=== PATIENT | female | born 1990 | race Caucasian/White ===

== ENCOUNTER 2016-04-20 07:57 | Emergency (ER) | payer OTHER ==
[~2016-04-20] VITALS: Ht 165.1 cm; Wt 124.0 kg
[~2016-04-20 07:57] MED LIST: AMOX500T PO
[2016-04-20 08:01] VITALS: BP 133/91; PULSE 98; RESP 16; TEMP 98; O2SAT 100
[2016-04-20] MEDS ORDERED: MOTR200T4 PO (08:09)
[2016-04-20] MEDS ORDERED: OSEL75 PO (08:09)
[2016-04-20] MEDS ORDERED: AMOX500T PO (08:19)
--- NOTE | 2016-04-20 08:20 | PD ---
HPI Chief Complaint: Cold / Flu Symptoms Time Seen by Provider: 08:09 Travel History International Travel<30 days: No Contact w/Intl Traveler<30days: No Traveled to known affect area: No History of Present Illness HPI This 25-year-old female says she been sick since Thursday. She started having some sore throat then. The sore throat is gone progressively worse. She is not sure if she's had fever. She has been taking TheraFlu. She says when she lays down and feels like her tonsils are closing her throat. She says there is no chance of . She has had a slight cough and a runny nose PFSH Past Medical History Diminished Hearing: No Tetanus Vaccination: Unknown Influenza Vaccination: No ?: Not LMP: 2-3 WEEKS AGO Menopausal: No Social History Alcohol Use: No Tobacco Use: No Substance Use: No Allergies-Medications (Allergen,Severity, Reaction): Coded Allergies: No Known Allergies (Verified , 04/20/16) Reported Meds & Prescriptions Reported Meds & Active Scripts Active Reported Tamiflu (Oseltamivir Phosphate) 75 Mg Cap 75 Mg PO DAILY Motrin Ib (Ibuprofen) 200 Mg Tab 400 Mg PO Q6H PRN Review of Systems General / Constitutional: No: Fever, Chills HENT: Positive: Sore Throat, Rhinitis, No: Headaches Cardiovascular: No: Chest Pain or Discomfort, Palpitations Respiratory: Positive: Cough Gastrointestinal: No: Vomiting, Diarrhea Genitourinary: No: Urgency, Frequency Musculoskeletal: Positive: Myalgias Skin: No Rash, No Itching Neurologic: No: Weakness Hematologic/Lymphatic: No: Easy Bruising Physical Exam Narrative GENERAL: Well-developed female SKIN: Warm and dry. HEAD: Atraumatic. Normocephalic. EYES: Pupils equal and round. No scleral icterus. No injection or drainage. ENT: No nasal bleeding or discharge. Mucous membranes pink and moist. Airways patent. Tonsils are enlarged and erythematous with yellow exudate NECK: Trachea midline. No JVD. Bilateral anterior cervical nodes CARDIOVASCULAR: Regular rate and rhythm. No murmur appreciated. RESPIRATORY: No accessory muscle use. Clear to auscultation. Breath sounds equal bilaterally. GASTROINTESTINAL: Abdomen soft, non-tender, nondistended. Hepatic and splenic margins not palpable. MUSCULOSKELETAL: No obvious deformities. No clubbing. No cyanosis. No edema. NEUROLOGICAL: Awake and alert. No obvious cranial nerve deficits. Motor grossly within normal limits. Normal speech. PSYCHIATRIC: Appropriate mood and affect; insight and judgment normal. Data Data Last Documented VS Vital Signs Date Time Temp Pulse Resp B/P Pulse Ox O2 Delivery O2 Flow Rate FiO2 04/20/16 08:01 98.0 98 16 133/91 100 MDM Medical Decision Making Medical Screen Exam Complete: Yes Emergency Medical Condition: Yes Medical Record Reviewed: Yes Differential Diagnosis Pharyngeal includes strep throat, tonsillitis, Narrative Course Examination is consistent with tonsillitis. She'll be placed on amoxicillin 500 3 times a day is recommended that she continue Tylenol or Motrin for pain Diagnosis Primary Impression: Tonsillitis with exudate Scripts Amoxicillin 500 Mg [id number] Mg PO TID #30 TAB Ref 0 Prov:Dimas Levy MD 04/20/16 Disposition: 01 DISCHARGE HOME Condition: Stable Dimas Levy MD Apr 20, 2016 08:20
== END 2016-04-20 08:26 | disposition home or self-care (01) ==
LOC: PHED 07:57
DX: J03.90 Acute tonsillitis, unspecified (principal)
CPT/HCPCS: 99283

== ENCOUNTER 2017-04-11 14:50 | Emergency (ER) | payer OTHER, MEDICAID ==
[~2017-04-11] VITALS: Ht 165.1 cm; Wt 125.0 kg
[~2017-04-11 14:50] MED LIST changes: +MOTR200T4 PO; +OSEL75 PO
[2017-04-11 14:52] VITALS: BP 126/70; PULSE 95; RESP 14; TEMP 99.2; O2SAT 99
[2017-04-11] MEDS ORDERED: HYDR-3133 PO (15:37)
[2017-04-11] MEDS ORDERED: BACT800T5 PO (15:37)
--- NOTE | 2017-04-11 15:38 | PD ---
HPI Chief Complaint: Skin Problem Time Seen by Provider: 15:28 Travel History International Travel<30 days: No Contact w/Intl Traveler<30days: No Traveled to known affect area: No History of Present Illness HPI 26-year-old female arrives with rash but the arms and legs for a few days. She reports intense pruritus. No fever. No one has a similar rash at home. She is a preschool educator believes may be she was exposed to [id number]-[id number]-mouth disease or bedbugs however denies seeing any at home. Her significant other and son have no similar rash. Hydrocortisone cream is not helped. Timing constant. PFSH Past Medical History Diminished Hearing: No Immunizations Current: Yes ?: Not LMP: 04/01/17 Menopausal: No Social History Alcohol Use: No Tobacco Use: No Substance Use: No Allergies-Medications (Allergen,Severity, Reaction): Coded Allergies: No Known Allergies (Verified Adverse Reaction, Unknown, 04/11/17) Reported Meds & Prescriptions Reported Meds & Active Scripts Active No Active Prescriptions or Reported Medications Review of Systems General / Constitutional: No: Fever Skin: Positive Rash Physical Exam Narrative GENERAL: 18-year-old female pleasant well-nourished well-developed SKIN: Warm and dry. Multiple erythematous lesions about the arms and legs. There are about 3 L wide some of them are unroofed. No induration. No induration. No purulent discharge and soles are clear without lesion HEAD: Normocephalic. EYES: No scleral icterus. No injection or drainage. NECK: Supple, trachea midline. No JVD or lymphadenopathy. OROPHARYNX: Oral mucosa is intact. There is no oropharyngeal lesion. Posterior oropharynx widely patent. Data Data Last Documented VS Vital Signs Date Time Temp Pulse Resp B/P (MAP) Pulse Ox O2 Delivery O2 Flow Rate FiO2 04/11/17 14:52 99.2 95 14 126/70 (88) 99 vital signs reviewed MDM Medical Decision Making Medical Screen Exam Complete: Yes Emergency Medical Condition: Yes Medical Record Reviewed: Yes Differential Diagnosis Cellulitis, hand-foot mouth disease, scabies Narrative Course Presentation could reflect the bedbugs. Cellulitis is a consideration. Bactrim DS. Return precautions discussed Diagnosis Primary Impression: Rash and nonspecific skin eruption Med/Other Pt SpecificInfo: Prescription(s) given Scripts Hydroxyzine HCl (Hydroxyzine HCl) 25 Mg Tab 25 MG PO TID Y for ITCHING for 7 Days, TAB 0 Refills Prov: Merrick Carreon MD 04/11/17 Sulfamethoxazole-Trimethoprim (Bactrim DS) 800-160 Mg Tab 1 TAB PO BID for Infection, #14 TAB 0 Refills Prov: Merrick Carreon MD 04/11/17 Disposition: 01 DISCHARGE HOME Condition: Stable Merrick Carreon MD Apr 11, 2017 15:38
== END 2017-04-11 16:03 | disposition home or self-care (01) ==
LOC: NEPD 14:50
DX: R21 Rash and other nonspecific skin eruption (principal)
CPT/HCPCS: 99284